=== PATIENT | male | born 1980 | race Caucasian/White ===

== ENCOUNTER 2024-04-29 14:36 | Observation (INO) ==
[2024-04-29] MEDS ORDERED: IOPAMIDOL 100 ML BOTTLE IV ONE (14:37)
[2024-04-29 15:22] LABS: POC INR 1.2 (0.8-1.2); POC Pro Time 13.7 (11.9-14.5)
[2024-04-29 15:41] LABS: ALT/SGPT 31 U/L (<40); AST/SGOT 52 U/L (<40); Albumin 4.6 gm/dL (3.2-5.2); Albumin/Globulin Ratio 1.6 (1.0-2.3); Alkaline Phosphatase 53 U/L (39-117); Bilirubin,Total 0.2 mg/dL (0.1-1.0); Blood Urea Nitrogen 23 mg/dL (6-20); Calcium 9.6 mg/dL (8.6-10.4); Carbon Dioxide 21 mmol/L (22-30); Chloride 97 mmol/L (96-108); Globulin 2.9 gm/dL (2.2-3.7); Glomerular Filtration Rate 73; Glucose 142 mg/dL (70-105); Potassium 3.8 mmol/L (3.3-5.1); Sodium 130 mmol/L (133-145)
[2024-04-29 15:58] LABS: Basophils # (Auto) 0.07 K/mcL (0.00-0.30); Basophils % (Auto) 0.7 % (0.0-2.0); Eosinophils # (Auto) 2.15 K/mcL (0.00-0.70); Eosinophils % (Auto) 20.2 % (0.0-7.0); Hematocrit 36.7 % (40.1-51.0); Hemoglobin 12.9 g/dL (13.7-17.5); Lymphocytes # (Auto) 4.54 K/mcL (1.50-4.80); Lymphocytes % (Auto) 42.7 % (15.5-49.0); Mean Cell Volume 86.8 fL (80.0-100.0); Mean Corpuscular HGB Conc 35.1 g/dL (31.0-36.0); Mean Platelet Volume 9.9 fL (8.8-12.5); Monocytes # (Auto) 0.34 K/mcL (0.10-0.90); Monocytes % (Auto) 3.2 % (1.0-12.0); Platelet Count 231 K/mcL (140-440); RBC 4.23 M/mcL (4.63-6.08); WBC 10.6 K/mcL (4.5-11.0)
[2024-04-29] MEDS: ATORVASTATIN 40 MG TABLET PO ONE (16:42)
[2024-04-29] MEDS: CLOPIDOGREL 300 MG TABLET PO ONE (16:42)
[2024-04-29] MEDS: ASPIRIN 325 MG ENTERIC COATED TABLET PO ONE (16:42)
[2024-04-29] MEDS: 0.9 % SODIUM CHLORIDE 1,000 ML IV ONE (16:43)
[2024-04-29] MEDS: ASPIRIN 81 MG TAB.CHEW CHEWED ONE (17:19)
[2024-04-29] MEDS ORDERED: SENNOSIDES 1 TABLET PO PRN (17:45)
[2024-04-29] MEDS ORDERED: IPRATROPIUM/ALBUTEROL 3 ML AMPUL.NEB NEB PRN (17:45)
[2024-04-29] MEDS ORDERED: ACETAMINOPHEN 325 MG TABLET PO PRN (17:45)
[2024-04-29] MEDS ORDERED: DEXTROSE 50% 50 ML VIAL IV PRN (17:45)
[2024-04-29] MEDS ORDERED: ONDANSETRON 4 MG/2 ML VIAL IV PRN (17:45)
[2024-04-29] MEDS ORDERED: MAGNESIUM SULFATE 2 GM/50 ML BAG IV PRN (17:45)
[2024-04-29] MEDS ORDERED: DEXTROSE 31 GM ORAL.SUSP PO PRN (17:45)
[2024-04-29] MEDS ORDERED: POLYETHYLENE GLYCOL 3350 17 GM PACKET PO PRN (17:45)
[2024-04-29] MEDS ORDERED: POTASSIUM CHLORIDE 40 MEQ in DEXTROSE 5% IN WATER 500 ML IV PRN (17:45)
[2024-04-29] MEDS ORDERED: POTASSIUM CHLORIDE 20 MEQ TABLET PO PRN ×2 (17:45)
[2024-04-29] MEDS: 0.9 % SODIUM CHLORIDE 1,000 ML IV SCH (17:49)
[2024-04-29 18:15] LABS: Appearance,Urine Clear (Clear); Bilirubin,Urine Negative (Negative); Color,Urine Yellow; Culture Indicated,Urine No; Glucose,Urine (UA) Negative (Negative); Ketones,Urine Negative (Negative); Leukocyte Esterase,Urine Negative /uL (Negative); Nitrate,Urine Negative (Negative); PH,Urine 5.5 (5.0-9.0); Protein,Urine Negative (Negative); Specific Gravity,Urine <= 1.005 (1.000-1.035); Urine Blood Negative ery/mcL (Negative); Urobilinogen,Urine Normal
[2024-04-29 19:01] LABS: HDL Cholesterol 30 mg/dL (>40); LDL Cholesterol,Calculated 83 mg/dL (<100); Non-HDL Cholesterol 155 mg/dL (<130); Triglycerides 363 mg/dL (<150)
[2024-04-29] MEDS: NICOTINE 14 MG PATCH TOPICAL SCH (19:29)
[2024-04-29] MEDS ORDERED: diphenhydrAMINE 25 MG CAPSULE PO PRN (20:41)
[2024-04-29] MEDS: HYDROcodone/APAP 10/325MG TABLET PO PRN (21:19)
[2024-04-29] MEDS: CYCLOBENZAPRINE 10 MG TABLET PO PRN (21:20)
[2024-04-29] MEDS: CARVEDILOL 12.5 MG TABLET PO SCH (21:20)
[2024-04-29] MEDS: rOPINIRole 1 MG TABLET PO SCH (21:20)
[2024-04-29] MEDS: buPROPion 150 MG TAB.XL.24H PO SCH (21:20)
[2024-04-29] MEDS: GABAPENTIN 300 MG CAPSULE PO SCH (21:21)
[2024-04-29] MEDS: PANTOPRAZOLE 40 MG TABLET PO SCH (21:21)
[2024-04-29] MEDS: DOCUSATE SODIUM 100 MG CAPSULE PO SCH (21:21)
[2024-04-29] MEDS: MELATONIN 3 MG TABLET PO SCH (21:21)
[2024-04-29] MEDS: INSULIN LISPRO 1 UNIT/0.01 ML UNIT SQ SCH (21:22)
[2024-04-29] MEDS: carBAMazepine 200 MG TAB.SR.12H PO SCH (22:00)
[2024-04-30 04:43] LABS: ALT/SGPT 19 U/L (<40); AST/SGOT 33 U/L (<40); Albumin 4.3 gm/dL (3.2-5.2); Albumin/Globulin Ratio 1.7 (1.0-2.3); Alkaline Phosphatase 45 U/L (39-117); Bilirubin,Direct < 0.2 mg/dL (0-0.3); Bilirubin,Total 0.2 mg/dL (0.1-1.0); Blood Urea Nitrogen 21 mg/dL (6-20); Calcium 9.6 mg/dL (8.6-10.4); Carbon Dioxide 27 mmol/L (22-30); Chloride 100 mmol/L (96-108); Globulin 2.5 gm/dL (2.2-3.7); Glomerular Filtration Rate 73; Glucose 95 mg/dL (70-105); Lactate Dehydrogenase 141 U/L (135-225); Phosphorous 3.7 mg/dL (2.5-4.5); Potassium 3.8 mmol/L (3.3-5.1); Sodium 135 mmol/L (133-145); Triglycerides 242 mg/dL (<150); Uric Acid 5.7 mg/dL (2.5-8.0)
[2024-04-30] MEDS: ENOXAPARIN 40 MG/0.4 ML SYRINGE SQ SCH (09:25)
[2024-04-30] MEDS: CLOPIDOGREL 75 MG TABLET PO SCH (09:28)
[2024-04-30] MEDS: rOPINIRole 1 MG TABLET PO SCH (09:28)
[2024-04-30] MEDS: ASPIRIN 81 MG TAB.CHEW CHEWED SCH (09:28)
[2024-04-30] MEDS: carBAMazepine 400 MG TAB.SR.12H PO SCH (10:56)
[2024-04-30] MEDS ORDERED: ATORVASTATIN 40 MG TABLET PO SCH (21:00)
== END 2024-04-30 12:43 | disposition home or self-care (01) ==
LOC: ED 14:36 → ICU 14:36
PROVIDERS: ADMIT Internal Medicine; ATTEND Internal Medicine